=== PATIENT | male | born 1980 | race African-American/Black ===

== ENCOUNTER 2019-05-24 13:08 | Inpatient (IN) | payer OTHER ==
--- NOTE | 2019-05-24 14:33 | BHS.RME ---
Substance Use & Tx History - Substance Use History Alcohol Substance amount: 5 pints daily Frequency of use: Daily Substance route: Oral Date of Last Use: 05/23/19 Cocaine (Powder) Substance amount: 8 bags Frequency of use: Daily Substance route: Smoking Date of Last Use: 05/23/19 Nicotine Substance amount: 10 cigs Frequency of use: Daily Substance route: Smoking Date of Last Use: 05/24/19 Cannabis Substance amount: 1 blunt Frequency of use: Less than 3 times per week Substance route: Smoking Date of Last Use: 05/22/19 Physical/Psych/Mental Status - Behavior General Behavior: Increased activity (restlessness, agitation) Eye Contact: Normal - Cooperativeness Cooperativeness: Cooperative - Thinking Thought Processes: Loosened Thought content: Future oriented - Physical Health Problems Is patient presently having any pain?: Yes (diffuse) Does patient presently have any injuries (include location): No Does patient currently have a fever: No CIWA Nausea/Vomitin-No Nausea/No Vomiting Muscle Tremors: 3 Anxiety: 3 Agitation: 1-Slight > Activity Paroxysmal Sweats: 1-Minimal Palms Moist Orientation: 0-Oriented Tacttile Disturbances: 1-Very Mild Itch/Numbness Auditory Disturbances: 1-Very Mild Visual Disturbances: 2-Mild Sensitivity Headache: 4-Moderately Severe CIWA-Ar Total Score: 16
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
[2019-05-24] MEDS ORDERED: hydrOXYzine PAMOATE 25 MG CAPSULE (FP) PO PRN (15:57)
[2019-05-24] MEDS ORDERED: MAGNESIUM CITRATE 300 ML BOTTLE PO PRN (15:57)
[2019-05-24] MEDS ORDERED: METHOCARBAMOL 500 MG TABLET PO PRN (15:57)
[2019-05-24] MEDS ORDERED: ACETAMINOPHEN 325 MG TABLET (FP) PO PRN ×2 (15:57)
[2019-05-24] MEDS ORDERED: chlordiazePOXIDE HCL 25 MG CAPSULE PO PRN (15:57)
[2019-05-24] MEDS ORDERED: MENTHOL/PHENOL 1 EACH UD MM PRN (15:57)
[2019-05-24] MEDS ORDERED: BISMUTH SUBSALICYLATE 524 MG/30 ML UD PO PRN (15:57)
[2019-05-24] MEDS ORDERED: MAGNESIUM HYDROX 2400MG/30ML ORAL SUSPENSION 30 ML CUP PO PRN (15:57)
[2019-05-24 16:18] VITALS: BMI 35.4
[2019-05-24] MEDS: chlordiazePOXIDE HCL 25 MG CAPSULE PO SCH ×2 (17:14→22:22)
[2019-05-24] MEDS: IBUPROFEN 400 MG TABLET (FP) PO PRN (17:17)
[2019-05-24] MEDS: NICOTINE 14 MG/24 HOURS TOPICAL PATCH TD SCH (17:21)
[2019-05-24] MEDS: THIAMINE HCL 100 MG TABLET (FP) PO SCH (22:22)
[2019-05-24] MEDS: MELATONIN 5 MG TABLETS PO PRN (22:23)
[2019-05-25] MEDS: chlordiazePOXIDE HCL 25 MG CAPSULE PO SCH ×4 (05:23→22:03)
[2019-05-25] MEDS: PRENATAL VITAMINS W/ FOLIC ACID TABLET (FP) PO SCH (10:30)
[2019-05-25] MEDS: NICOTINE 14 MG/24 HOURS TOPICAL PATCH TD SCH (10:32)
--- NOTE | 2019-05-25 10:43 | PN ---
[facility] CIWA - CIWA Score Nausea/Vomitin-No Nausea/No Vomiting Muscle Tremors: 3 Anxiety: 3 Agitation: 5 Paroxysmal Sweats: 2 Orientation: 0-Oriented Tacttile Disturbances: 0-None Auditory Disturbances: 0-None Visual Disturbances: 0-None Headache: 0-None Present CIWA-Ar Total Score: 13 S Progress Note (SOAP) Subjective: 38 years old male admitted on 05/24/19 for alcohol withdrawal sx management treating with librium detox regiment reports taking aspirin anticholesterol and antihypertensive medication patient has bp elevation with anger outburst deescalated successfully resume all home medications Objective: 05/25/19 15:31 Vital Signs Temperature 98.3 F 05/25/19 12:42 Pulse Rate 83 05/25/19 12:42 Respiratory Rate 17 05/25/19 12:42 Blood Pressure 147/79 05/25/19 12:42 O2 Sat by Pulse Oximetry (%) Laboratory Last Values WBC 6.0 K/mm3 (4.0-10.0) 05/25/19 08:00 RBC 5.23 M/mm3 (4.00-5.60) 05/25/19 08:00 Hgb 12.9 GM/dL (11.7-16.9) 05/25/19 08:00 Hct 40.7 % (35.4-49) 05/25/19 08:00 MCV 77.8 fl (80-96) L 05/25/19 08:00 MCH 24.7 pg (25.7-33.7) L 05/25/19 08:00 MCHC 31.8 g/dl (32.0-35.9) L 05/25/19 08:00 RDW 16.0 % (11.9-15.9) H 05/25/19 08:00 Plt Count 188 K/MM3 (134-434) 05/25/19 08:00 MPV 9.2 fl (7.5-11.1) 05/25/19 08:00 Sodium 139 mmol/L (136-145) 05/25/19 08:00 Potassium 4.1 mmol/L (3.5-5.1) 05/25/19 08:00 Chloride 108 mmol/L (98-107) H 05/25/19 08:00 Carbon Dioxide 26 mmol/L (21-32) 05/25/19 08:00 Anion Gap 4 MMOL/L (8-16) L 05/25/19 08:00 BUN 13.8 mg/dL (7-18) 05/25/19 08:00 Creatinine 0.9 mg/dL (0.55-1.3) 05/25/19 08:00 Est GFR (CKD-EPI)AfAm 125.13 05/25/19 08:00 Est GFR (CKD-EPI)NonAf 107.97 05/25/19 08:00 Random Glucose 81 mg/dL (74-106) 05/25/19 08:00 Calcium 8.2 mg/dL (8.5-10.1) L 05/25/19 08:00 Total Bilirubin 0.8 mg/dL (0.2-1) 05/25/19 08:00 AST 18 U/L (15-37) 05/25/19 08:00 ALT 42 U/L (13-61) 05/25/19 08:00 Alkaline Phosphatase 62 U/L (45-117) 05/25/19 08:00 Total Protein 6.2 g/dl (6.4-8.2) L 05/25/19 08:00 Albumin 3.4 g/dl (3.4-5.0) 05/25/19 08:00 RPR Titer Nonreactive (NONREACTIVE) 05/25/19 08:00 lab noted Assessment: 05/25/19 15:31 alcohol withdrawal Plan: librium detox regiment
[2019-05-25 10:53] LABS: HEMATOCRIT 40.7 % (35.4-49); HEMOGLOBIN 12.9 GM/dL (11.7-16.9); MCH 24.7 pg (25.7-33.7); MCHC 31.8 g/dl (32.0-35.9); MEAN CELL VOLUME 77.8 fl (80-96); MEAN PLT VOLUME 9.2 fl (7.5-11.1); PLATELET COUNT 188 K/MM3 (134-434); RBC 5.23 M/mm3 (4.00-5.60)
[2019-05-25] MEDS: LISINOPRIL 10 MG TABLET (FP) PO SCH (11:01)
[2019-05-25] MEDS: ASPIRIN 81 MG CHEWABLE TABLETS PO SCH (11:01)
[2019-05-25 11:08] LABS: ALBUMIN 3.4 g/dl (3.4-5.0); BILIRUBIN,TOTAL 0.8 mg/dL (0.2-1); BLOOD UREA NITROGEN 13.8 mg/dL (7-18); CALCIUM 8.2 mg/dL (8.5-10.1); CREATININE 0.9 mg/dL (0.55-1.3); POTASSIUM 4.1 mmol/L (3.5-5.1); TOT PROT 6.2 g/dl (6.4-8.2)
[2019-05-25] MEDS: IBUPROFEN 400 MG TABLET (FP) PO PRN ×2 (12:46→22:07)
--- NOTE | 2019-05-25 16:50 | EKG ---
Test Reason : Blood Pressure : / mmHG Vent. Rate : 070 BPM Atrial Rate : 070 BPM P-R Int : 178 ms QRS Dur : 090 ms QT Int : 374 ms P-R-T Axes : 048 025 -03 degrees QTc Int : 403 ms NORMAL SINUS RHYTHM MINIMAL VOLTAGE CRITERIA FOR LVH, MAY BE NORMAL VARIANT NONSPECIFIC T WAVE ABNORMALITY ABNORMAL ECG Confirmed by MD SHELBIE, MAXX ([id number]) on 05/25/2019 4:50:03 PM Referred By: TRI Confirmed By:MAXX MORFIN MD
[2019-05-25] MEDS: MAG HYDROX/AL HYDROX/SIMETH 30 ML UNIT-DOSE CUP PO PRN (17:55)
[2019-05-25] MEDS: MELATONIN 5 MG TABLETS PO PRN (22:04)
[2019-05-25] MEDS: ATORVASTATIN CA 40 MG TABLET (FP) PO SCH (22:04)
[2019-05-25] MEDS: THIAMINE HCL 100 MG TABLET (FP) PO SCH (22:04)
[2019-05-26] MEDS: chlordiazePOXIDE HCL 25 MG CAPSULE PO SCH ×4 (05:37→22:01)
[2019-05-26] MEDS: LISINOPRIL 10 MG TABLET (FP) PO SCH (10:04)
[2019-05-26] MEDS: PRENATAL VITAMINS W/ FOLIC ACID TABLET (FP) PO SCH (10:04)
[2019-05-26] MEDS: NICOTINE 14 MG/24 HOURS TOPICAL PATCH TD SCH (10:04)
[2019-05-26] MEDS: ASPIRIN 81 MG CHEWABLE TABLETS PO SCH (10:04)
--- NOTE | 2019-05-26 14:49 | PN ---
S CIWA - CIWA Score Nausea/Vomitin-No Nausea/No Vomiting Muscle Tremors: 1-None Visible, but [place] Anxiety: 1-Mildly Anxious Agitation: 5 Paroxysmal Sweats: 1-Minimal Palms Moist Orientation: 0-Oriented Tacttile Disturbances: 0-None Auditory Disturbances: 0-None Visual Disturbances: 1-Very Mild Sensitivity Headache: 1-Very Mild CIWA-Ar Total Score: 10 BHS Progress Note (SOAP) Subjective: 38 years old male admitted on 05/24/19 for alcohol withdrawal sx management treating with librium detox regiment Mr Potter is irritable and agitative today prefers to be left along Objective: 05/26/19 14:50 Vital Signs Temperature 97.7 F 05/26/19 12:36 Pulse Rate 75 05/26/19 12:36 Respiratory Rate 18 05/26/19 12:36 Blood Pressure 137/85 05/26/19 12:36 O2 Sat by Pulse Oximetry (%) Laboratory Last Values WBC 6.0 K/mm3 (4.0-10.0) 05/25/19 08:00 RBC 5.23 M/mm3 (4.00-5.60) 05/25/19 08:00 Hgb 12.9 GM/dL (11.7-16.9) 05/25/19 08:00 Hct 40.7 % (35.4-49) 05/25/19 08:00 MCV 77.8 fl (80-96) L 05/25/19 08:00 MCH 24.7 pg (25.7-33.7) L 05/25/19 08:00 MCHC 31.8 g/dl (32.0-35.9) L 05/25/19 08:00 RDW 16.0 % (11.9-15.9) H 05/25/19 08:00 Plt Count 188 K/MM3 (134-434) 05/25/19 08:00 MPV 9.2 fl (7.5-11.1) 05/25/19 08:00 Sodium 139 mmol/L (136-145) 05/25/19 08:00 Potassium 4.1 mmol/L (3.5-5.1) 05/25/19 08:00 Chloride 108 mmol/L (98-107) H 05/25/19 08:00 Carbon Dioxide 26 mmol/L (21-32) 05/25/19 08:00 Anion Gap 4 MMOL/L (8-16) L 05/25/19 08:00 BUN 13.8 mg/dL (7-18) 05/25/19 08:00 Creatinine 0.9 mg/dL (0.55-1.3) 05/25/19 08:00 Est GFR (CKD-EPI)AfAm 125.13 05/25/19 08:00 Est GFR (CKD-EPI)NonAf 107.97 05/25/19 08:00 Random Glucose 81 mg/dL (74-106) 05/25/19 08:00 Calcium 8.2 mg/dL (8.5-10.1) L 05/25/19 08:00 Total Bilirubin 0.8 mg/dL (0.2-1) 05/25/19 08:00 AST 18 U/L (15-37) 05/25/19 08:00 ALT 42 U/L (13-61) 05/25/19 08:00 Alkaline Phosphatase 62 U/L (45-117) 05/25/19 08:00 Total Protein 6.2 g/dl (6.4-8.2) L 05/25/19 08:00 Albumin 3.4 g/dl (3.4-5.0) 05/25/19 08:00 RPR Titer Nonreactive (NONREACTIVE) 05/25/19 08:00 lab noted Assessment: 05/26/19 14:50 alcohol withdrawal Plan: librium regiment
[2019-05-26] MEDS: THIAMINE HCL 100 MG TABLET (FP) PO SCH (22:01)
[2019-05-26] MEDS: MELATONIN 5 MG TABLETS PO PRN (22:01)
[2019-05-26] MEDS: ATORVASTATIN CA 40 MG TABLET (FP) PO SCH (22:01)
[2019-05-26] MEDS: MAG HYDROX/AL HYDROX/SIMETH 30 ML UNIT-DOSE CUP PO PRN (22:04)
[2019-05-27] MEDS ORDERED: chlordiazePOXIDE HCL 10 MG CAPSULE PO PRN
[2019-05-27] MEDS: chlordiazePOXIDE HCL 10 MG CAPSULE PO SCH ×2 (05:30→10:04)
--- NOTE | 2019-05-27 09:25 | PN ---
[facility] CIWA - CIWA Score Nausea/Vomitin-No Nausea/No Vomiting Muscle Tremors: None Anxiety: 2 Agitation: 1-Slight > Activity Paroxysmal Sweats: 2 Orientation: 2-Disoriented Date<2 days Tacttile Disturbances: 0-None Auditory Disturbances: 0-None Visual Disturbances: 0-None Headache: 0-None Present CIWA-Ar Total Score: 7 BHS Progress Note (SOAP) Subjective: Pt complains of anxiety, took Vistaril yesterday without benefit Objective: 05/27/19 09:21 Laboratory Tests 05/25/19 05/25/19 05/25/19 08:00 08:00 08:00 WBC 6.0 RBC 5.23 Hgb 12.9 Hct 40.7 MCV 77.8 L MCH 24.7 L MCHC 31.8 L RDW 16.0 H Plt Count 188 MPV 9.2 Sodium 139 Potassium 4.1 Chloride 108 H Carbon Dioxide 26 Anion Gap 4 L BUN 13.8 Creatinine 0.9 Est GFR (CKD-EPI)AfAm 125.13 Est GFR (CKD-EPI)NonAf 107.97 Random Glucose 81 Calcium 8.2 L Total Bilirubin 0.8 AST 18 ALT 42 Alkaline Phosphatase 62 Total Protein 6.2 L Albumin 3.4 RPR Titer Nonreactive Vital Signs - 24 hr 05/26/19 05/26/19 05/26/19 12:36 17:11 20:12 Temperature 97.7 F 98.8 F 97.7 F Pulse Rate 75 81 72 Respiratory 18 18 16 Rate Blood Pressure 137/85 145/88 140/88 05/27/19 05/27/19 05/27/19 00:25 03:30 06:07 Temperature 96.7 F L Pulse Rate 50 L Respiratory 18 18 18 Rate Blood Pressure 131/92 PE Gnl: WDWN, in mild distress/anxious Mental status: awake, alert, nl language Motor: moves all limbs well Coord: nl Gait: nl Assessment: 05/27/19 09:24 1. Alcohol use disorder 2. anxious Plan: 1. continue alcohol withdrawal protocol 2. advised pt to take Vistaril and/or Librium 10 mg prn for sx of anxiety
[2019-05-27 09:31] VITALS: BP 125/77; PULSE 81; TEMP 97.6
[2019-05-27] MEDS: NICOTINE 14 MG/24 HOURS TOPICAL PATCH TD SCH (10:04)
[2019-05-27] MEDS: PRENATAL VITAMINS W/ FOLIC ACID TABLET (FP) PO SCH (10:04)
[2019-05-27] MEDS: ASPIRIN 81 MG CHEWABLE TABLETS PO SCH (10:04)
[2019-05-27] MEDS: LISINOPRIL 10 MG TABLET (FP) PO SCH (10:04)
--- NOTE | 2019-05-27 10:56 | DS ---
[facility] Detox Discharge Summary Admission Date: 05/24/19 Discharge Date: 05/27/19 - History Present History: Alcohol Dependence - Physical Exam Results Vital Signs: Vital Signs Temperature 97.6 F 05/27/19 08:37 Pulse Rate 81 05/27/19 08:37 Respiratory Rate 18 05/27/19 08:37 Blood Pressure 125/77 05/27/19 08:37 O2 Sat by Pulse Oximetry (%) Pertinent Admission Physical Exam Findings: PE Gnl: WDWN, anxious Motor: moves all limbs Coord: nl - Treatment Hospital Course: Detox Protocol Followed, Detoxed Safely, Responded well, Discharged Condition Good - Medication Discharge Medications: Ambulatory Orders Aspirin [ASA -] 81 mg PO DAILY 05/24/19 Atorvastatin Ca [Lipitor] 40 mg PO HS 05/24/19 Lisinopril [Prinivil] 10 mg PO DAILY 05/24/19 - Diagnosis (1) Alcohol abuse with intoxication, uncomplicated Current Visit: Yes Status: Acute (2) Cocaine abuse Current Visit: Yes Status: Acute (3) Nicotine dependence Current Visit: Yes Status: Acute (4) Cannabis abuse Current Visit: Yes Status: Chronic (5) HTN (hypertension) Current Visit: Yes Status: Acute (6) Myocardial infarct, old Current Visit: Yes Status: Chronic - AMA Did Patient Leave Against Medical Advice: No
[2019-05-28] MEDS ORDERED: chlordiazePOXIDE HCL 10 MG CAPSULE PO SCH (05:00)
[2019-05-29] MEDS ORDERED: chlordiazePOXIDE HCL 10 MG CAPSULE PO ONE (05:00)
== END 2019-05-27 11:08 | disposition home or self-care (01) | DRG 774 ==
LOC: YASAS 13:08 → Y3N 16:47
PROVIDERS: ADMIT Allergy & Immunology; ATTEND Allergy & Immunology
PROC: HZ2ZZZZ Detoxification Services for Substance Abuse Treatment (ICD-10-PCS; principal; 2019-05-24)
DX: F10.230 Alcohol dependence with withdrawal, uncomplicated (principal); F14.20 Cocaine dependence, uncomplicated; F12.10 Cannabis abuse, uncomplicated; F17.210 Nicotine dependence, cigarettes, uncomplicated; I25.10 Atherosclerotic heart disease of native coronary artery without angina pectoris; I10 Essential (primary) hypertension; I25.2 Old myocardial infarction; E78.00 Pure hypercholesterolemia, unspecified; Z79.82 Long term (current) use of aspirin; Z88.0 Allergy status to penicillin; Z91.013 Allergy to seafood
CPT/HCPCS: 36415; 80053; 85027; 86593; 93005; 93010

== ENCOUNTER 2021-03-22 11:12 | Inpatient (IN) | payer OTHER ==
[2021-03-22 12:02] VITALS: BMI 32.8
[2021-03-22] MEDS ORDERED: MAGNESIUM HYDROX 2400MG/30ML ORAL SUSPENSION 30 ML CUP PO PRN (12:49)
[2021-03-22] MEDS ORDERED: NICOTINE 10 MG CARTRIDGE (INHALER) IH PRN (12:49)
[2021-03-22] MEDS ORDERED: ACETAMINOPHEN 325 MG TABLET (FP) PO PRN (12:49)
[2021-03-22] MEDS ORDERED: MAG HYDROX/AL HYDROX/SIMETH 30 ML UNIT-DOSE CUP PO PRN (12:49)
[2021-03-22] MEDS ORDERED: ONDANSETRON *ODT* 4 MG TABLET SL PRN (12:49)
[2021-03-22] MEDS ORDERED: chlordiazePOXIDE HCL 25 MG CAPSULE PO PRN (12:49)
[2021-03-22] MEDS ORDERED: MAGNESIUM CITRATE 300 ML BOTTLE PO PRN (12:49)
[2021-03-22] MEDS: hydrOXYzine PAMOATE 25 MG CAPSULE (FP) PO SCH ×3 (18:02→22:19)
[2021-03-22] MEDS: chlordiazePOXIDE HCL 25 MG CAPSULE PO SCH ×2 (18:02→22:20)
[2021-03-22] MEDS: IBUPROFEN 400 MG TABLET (FP) PO PRN (18:03)
[2021-03-22] MEDS: PRENATAL VITAMINS W/ FOLIC ACID TABLET (FP) PO SCH (18:25)
[2021-03-22] MEDS: THIAMINE HCL 100 MG TABLET (FP) PO SCH (22:19)
[2021-03-22] MEDS: MELATONIN 5 MG TABLETS PO SCH (22:19)
[2021-03-22] MEDS: METHOCARBAMOL 500 MG TABLET PO PRN (22:21)
[2021-03-22] MEDS: ACETAMINOPHEN 325 MG TABLET (FP) PO PRN (22:21)
[2021-03-23] MEDS: hydrOXYzine PAMOATE 25 MG CAPSULE (FP) PO SCH ×5 (05:35→22:00)
[2021-03-23] MEDS: chlordiazePOXIDE HCL 25 MG CAPSULE PO SCH ×4 (05:36→22:00)
[2021-03-23] MEDS: METHOCARBAMOL 500 MG TABLET PO PRN ×2 (05:36→22:01)
[2021-03-23] MEDS: PRENATAL VITAMINS W/ FOLIC ACID TABLET (FP) PO SCH (10:17)
[2021-03-23 10:37] LABS: HEMATOCRIT 39.5 % (35.4-49); HEMOGLOBIN 12.5 GM/dL (11.7-16.9); MCH 24.5 pg (25.7-33.7); MCHC 31.8 g/dl (32.0-35.9); MEAN PLT VOLUME 9.2 fl (7.5-11.1); PLATELET COUNT 179 10^3/uL (134-434); RBC 5.12 M/mm3 (4.00-5.60); RDW 15.3 % (11.9-15.9)
[2021-03-23 10:45] LABS: CALCIUM 8.3 mg/dL (8.5-10.1)
[2021-03-23 10:46] LABS: BLOOD UREA NITROGEN 10.4 mg/dL (7-18)
[2021-03-23 10:48] LABS: CREATININE 0.9 mg/dL (0.55-1.3)
[2021-03-23 10:49] LABS: BILIRUBIN,TOTAL 0.2 mg/dL (0.2-1)
[2021-03-23 10:50] LABS: TOT PROT 6.1 g/dl (6.4-8.2)
[2021-03-23] MEDS: MENTHOL/PHENOL 1 EACH UD MM PRN ×2 (16:37→20:30)
[2021-03-23] MEDS: MELATONIN 5 MG TABLETS PO SCH (22:00)
[2021-03-23] MEDS: THIAMINE HCL 100 MG TABLET (FP) PO SCH (22:00)
[2021-03-24] MEDS: hydrOXYzine PAMOATE 25 MG CAPSULE (FP) PO SCH ×5 (05:17→22:20)
[2021-03-24] MEDS: chlordiazePOXIDE HCL 25 MG CAPSULE PO SCH ×4 (05:17→22:20)
[2021-03-24] MEDS: METHOCARBAMOL 500 MG TABLET PO PRN ×2 (05:18→18:17)
[2021-03-24] MEDS: PRENATAL VITAMINS W/ FOLIC ACID TABLET (FP) PO SCH (10:55)
[2021-03-24] MEDS: MENTHOL/PHENOL 1 EACH UD MM PRN (18:18)
[2021-03-24] MEDS: THIAMINE HCL 100 MG TABLET (FP) PO SCH (22:19)
[2021-03-24] MEDS: MELATONIN 5 MG TABLETS PO SCH (22:20)
[2021-03-24] MEDS: IBUPROFEN 400 MG TABLET (FP) PO PRN (22:21)
[2021-03-25] MEDS ORDERED: chlordiazePOXIDE HCL 10 MG CAPSULE PO PRN
[2021-03-25] MEDS: chlordiazePOXIDE HCL 10 MG CAPSULE PO SCH ×4 (05:24→22:37)
[2021-03-25] MEDS: hydrOXYzine PAMOATE 25 MG CAPSULE (FP) PO SCH ×5 (05:25→22:38)
[2021-03-25] MEDS: MENTHOL/PHENOL 1 EACH UD MM PRN ×2 (05:25→18:35)
[2021-03-25] MEDS: PRENATAL VITAMINS W/ FOLIC ACID TABLET (FP) PO SCH (10:06)
[2021-03-25] MEDS: IBUPROFEN 400 MG TABLET (FP) PO PRN ×2 (10:07→18:29)
[2021-03-25] MEDS: BISMUTH SUBSALICYLATE 262 MG/15 ML BTL PO PRN (18:34)
[2021-03-25] MEDS: MELATONIN 5 MG TABLETS PO SCH (22:38)
[2021-03-25] MEDS: THIAMINE HCL 100 MG TABLET (FP) PO SCH (22:38)
[2021-03-25] MEDS: METHOCARBAMOL 500 MG TABLET PO PRN (22:39)
[2021-03-26] MEDS: IBUPROFEN 400 MG TABLET (FP) PO PRN (03:28)
[2021-03-26] MEDS: chlordiazePOXIDE HCL 10 MG CAPSULE PO SCH ×2 (04:09→17:11)
[2021-03-26] MEDS: METHOCARBAMOL 500 MG TABLET PO PRN ×2 (04:44→17:01)
[2021-03-26] MEDS: hydrOXYzine PAMOATE 25 MG CAPSULE (FP) PO SCH ×5 (07:09→22:41)
[2021-03-26] MEDS: ACETAMINOPHEN 325 MG TABLET (FP) PO PRN (09:01)
[2021-03-26] MEDS: PRENATAL VITAMINS W/ FOLIC ACID TABLET (FP) PO SCH (10:20)
[2021-03-26] MEDS: ASPIRIN 81 MG CHEWABLE TABLETS PO SCH (12:44)
[2021-03-26] MEDS ORDERED: cloNIDine HCL 0.1 MG TABLET PO ONE (16:45)
[2021-03-26] MEDS: MELATONIN 5 MG TABLETS PO SCH (22:41)
[2021-03-26] MEDS: ATORVASTATIN CA 40 MG TABLET (FP) PO SCH (22:41)
[2021-03-26] MEDS: THIAMINE HCL 100 MG TABLET (FP) PO SCH (22:41)
[2021-03-27] MEDS ORDERED: chlordiazePOXIDE HCL 10 MG CAPSULE PO ONE (05:00)
[2021-03-27] MEDS: hydrOXYzine PAMOATE 25 MG CAPSULE (FP) PO SCH ×5 (06:55→21:09)
[2021-03-27] MEDS: ACETAMINOPHEN 325 MG TABLET (FP) PO PRN (06:59)
[2021-03-27] MEDS: METHOCARBAMOL 500 MG TABLET PO PRN ×2 (06:59→21:08)
[2021-03-27] MEDS: BISMUTH SUBSALICYLATE 262 MG/15 ML BTL PO PRN (07:01)
[2021-03-27] MEDS: PRENATAL VITAMINS W/ FOLIC ACID TABLET (FP) PO SCH (09:59)
[2021-03-27] MEDS: ASPIRIN 81 MG CHEWABLE TABLETS PO SCH (09:59)
[2021-03-27] MEDS: guaiFENesin 200 MG/10 ML 10 ML UNIT-DOSE CUPS PO PRN (19:14)
[2021-03-27] MEDS: THIAMINE HCL 100 MG TABLET (FP) PO SCH (21:02)
[2021-03-27] MEDS: MELATONIN 5 MG TABLETS PO SCH (21:02)
[2021-03-27] MEDS: ATORVASTATIN CA 40 MG TABLET (FP) PO SCH (21:02)
[2021-03-27] MEDS: IBUPROFEN 400 MG TABLET (FP) PO PRN (23:19)
[2021-03-28] MEDS ORDERED: ACETAMINOPHEN 325 MG TABLET (FP) PO ONE (01:18)
[2021-03-28] MEDS: hydrOXYzine PAMOATE 25 MG CAPSULE (FP) PO SCH ×2 (05:46→12:09)
[2021-03-28] MEDS: PRENATAL VITAMINS W/ FOLIC ACID TABLET (FP) PO SCH (10:45)
[2021-03-28] MEDS: ASPIRIN 81 MG CHEWABLE TABLETS PO SCH (10:45)
[2021-03-28] MEDS: ACETAMINOPHEN 325 MG TABLET (FP) PO PRN (13:43)
[2021-03-28] MEDS: IBUPROFEN 400 MG TABLET (FP) PO PRN ×2 (17:06→23:18)
[2021-03-28] MEDS: THIAMINE HCL 100 MG TABLET (FP) PO SCH (22:19)
[2021-03-28] MEDS: ATORVASTATIN CA 40 MG TABLET (FP) PO SCH (22:19)
[2021-03-28] MEDS: MELATONIN 5 MG TABLETS PO SCH (22:19)
[2021-03-29] MEDS: IBUPROFEN 400 MG TABLET (FP) PO PRN ×2 (05:27→17:06)
[2021-03-29] MEDS: ASPIRIN 81 MG CHEWABLE TABLETS PO SCH (11:04)
[2021-03-29] MEDS: PRENATAL VITAMINS W/ FOLIC ACID TABLET (FP) PO SCH (11:04)
[2021-03-29] MEDS: guaiFENesin 200 MG/10 ML 10 ML UNIT-DOSE CUPS PO PRN ×2 (11:05→19:31)
[2021-03-29] MEDS: ACETAMINOPHEN 325 MG TABLET (FP) PO PRN ×2 (13:30→21:41)
[2021-03-29] MEDS: MELATONIN 5 MG TABLETS PO SCH (21:41)
[2021-03-29] MEDS: ATORVASTATIN CA 40 MG TABLET (FP) PO SCH (21:41)
[2021-03-29] MEDS: THIAMINE HCL 100 MG TABLET (FP) PO SCH (21:41)
[2021-03-30] MEDS ORDERED: ALBUTEROL SO4 HFA INHALER IH PRN (05:30)
[2021-03-30] MEDS: guaiFENesin 200 MG/10 ML 10 ML UNIT-DOSE CUPS PO PRN (06:29)
[2021-03-30 06:31] VITALS: BP 104/82; PULSE 86; TEMP 97.7
[2021-03-30] MEDS: PRENATAL VITAMINS W/ FOLIC ACID TABLET (FP) PO SCH (10:46)
[2021-03-30] MEDS: ASPIRIN 81 MG CHEWABLE TABLETS PO SCH (10:46)
[2021-03-30] MEDS ORDERED: BENZOCAINE/MENTHOL 1 EACH LOZENGE MM PRN (20:38)
[2021-03-30] MEDS ORDERED: ACETAMINOPHEN 1000 MG/100 ML BAG IVPB PRN (20:39)
[2021-03-30] MEDS ORDERED: ALBUTEROL SO4 HFA INHALER IH SCH (20:45)
[2021-03-30] MEDS ORDERED: BUDESONIDE/FORMETEROL FUMARATE 80/4.5 mcg INHALER IH SCH (22:00)
== END 2021-03-30 23:55 | disposition short-term general hospital (02) | DRG 773 ==
LOC: YASAS 11:12 → Y3N 14:45
PROVIDERS: ADMIT Allergy & Immunology; ATTEND Allergy & Immunology
PROC: HZ2ZZZZ Detoxification Services for Substance Abuse Treatment (ICD-10-PCS; principal; 2021-03-22)
DX: F10.20 Alcohol dependence, uncomplicated (principal); F11.20 Opioid dependence, uncomplicated; F14.20 Cocaine dependence, uncomplicated; F12.20 Cannabis dependence, uncomplicated; F17.210 Nicotine dependence, cigarettes, uncomplicated; F32.A Depression, unspecified; U07.1 COVID-19; I10 Essential (primary) hypertension; I25.2 Old myocardial infarction; R05.9 Cough, unspecified; R06.02 Shortness of breath; R88.0 Cloudy (hemodialysis) (peritoneal) dialysis effluent; Z91.013 Allergy to seafood
CPT/HCPCS: 36415; 80053; 85027; 86780; C9803; J0735; U0003; U0005

== ENCOUNTER 2021-03-30 10:39 | Inpatient (IN) | payer OTHER ==
[2021-03-30 12:07] VITALS: BMI 29.1
[2021-03-30] MEDS ORDERED: DEXAMETHASONE SOD PHOSPHATE 10 MG/1 ML VIAL IVPUSH ONE (14:07)
[2021-03-30] MEDS ORDERED: DEXAMETHASONE SOD PHOSPHATE 10 MG/1 ML VIAL ONE (14:18)
[2021-03-30] MEDS ORDERED: ACETAMINOPHEN 1000 MG/100 ML BAG IVPB ONE (14:46)
[2021-03-30] MEDS ORDERED: METOCLOPRAMIDE HCL INJECTION 10 MG/2 ML VIAL IVPUSH ONE (14:46)
[2021-03-30] MEDS ORDERED: ACETAMINOPHEN INJECTION 100 ML IVPB ONE (14:51)
[2021-03-30] MEDS ORDERED: METOCLOPRAMIDE HCL INJECTION 10 MG/2 ML VIAL ONE (14:51)
[2021-03-30 14:57] LABS: BASO % 0.3 % (0-2.0); HEMOGLOBIN 13.5 GM/dL (11.7-16.9); LYMPH % 24.1 % (8-40); MCH 23.5 pg (25.7-33.7); MCHC 31.3 g/dl (32.0-35.9); MEAN PLT VOLUME 8.6 fl (7.5-11.1); MONO % 7.4 % (3.8-10.2); NEUT % 68.2 % (42.8-82.8); PLATELET COUNT 199 10^3/uL (134-434); RBC 5.72 M/mm3 (4.00-5.60); RDW 15.1 % (11.9-15.9); WHITE BLOOD COUNT 5.4 K/mm3 (4.0-10.0)
[2021-03-30 15:17] LABS: CHLORIDE 103 mmol/L (98-107); SODIUM 135 mmol/L (136-145)
[2021-03-30 15:21] LABS: ALBUMIN 3.6 g/dl (3.4-5.0); ANION GAP 7 MMOL/L (8-16); CALCIUM 8.4 mg/dL (8.5-10.1); CO2 25 mmol/L (21-32); GLUCOSE,RANDOM 93 mg/dL (74-106)
[2021-03-30 15:24] LABS: CREATININE 0.9 mg/dL (0.55-1.3); SGPT/ALT 56 U/L (13-61)
[2021-03-30 15:25] LABS: SGOT/AST 35 U/L (15-37)
[2021-03-30 15:26] LABS: BILIRUBIN,TOTAL 0.3 mg/dL (0.2-1); TOT PROT 7.2 g/dl (6.4-8.2)
[2021-03-30 15:28] LABS: ALK PHOS 62 U/L (45-117)
[2021-03-30 15:33] LABS: ERYTHROCYTE SEDIMENTATION RATE 14 mm/hr (0-10)
[2021-03-30] MEDS ORDERED: FAMOTIDINE 20 MG/50 ML IVPB 20 MG/50 ML MG IVPB ONE ×2 (20:20→20:38)
[2021-03-30] MEDS ORDERED: ATORVASTATIN CA 40 MG TABLET (FP) ONE (20:38)
[2021-03-30] MEDS ORDERED: guaiFENesin 200 MG/10 ML 10 ML UNIT-DOSE CUPS PO PRN (20:40)
[2021-03-30] MEDS ORDERED: BENZOCAINE/MENTH/CETYLPYRD CL 1 EACH LOZENGE MM PRN (20:40)
[2021-03-30] MEDS ORDERED: ACETAMINOPHEN 1000 MG/100 ML BAG IVPB PRN (20:41)
[2021-03-30] MEDS: ATORVASTATIN CA 40 MG TABLET (FP) PO SCH (22:14)
[2021-03-31 08:54] LABS: BASO % 0.3 % (0-2.0); EOS % 0.1 % (0-4.5); HEMATOCRIT 42.2 % (35.4-49); HEMOGLOBIN 13.4 GM/dL (11.7-16.9); LYMPH % 21.8 % (8-40); MCH 23.6 pg (25.7-33.7); MCHC 31.7 g/dl (32.0-35.9); MEAN CELL VOLUME 74.4 fl (80-96); MEAN PLT VOLUME 8.3 fl (7.5-11.1); MONO % 7.4 % (3.8-10.2); NEUT % 70.4 % (42.8-82.8); PLATELET COUNT 217 10^3/uL (134-434); RBC 5.67 M/mm3 (4.00-5.60); WHITE BLOOD COUNT 6.3 K/mm3 (4.0-10.0)
[2021-03-31 09:06] LABS: BLOOD UREA NITROGEN 11.2 mg/dL (7-18); CALCIUM 8.4 mg/dL (8.5-10.1)
[2021-03-31 09:07] LABS: ALBUMIN 3.2 g/dl (3.4-5.0); MAGNESIUM 2.4 mg/dL (1.8-2.4)
[2021-03-31 09:09] LABS: PHOSPHOROUS 2.8 mg/dL (2.5-4.9)
[2021-03-31 09:10] LABS: CREATININE 0.9 mg/dL (0.55-1.3)
[2021-03-31 09:11] LABS: BILIRUBIN,TOTAL 0.3 mg/dL (0.2-1); TOT PROT 7.1 g/dl (6.4-8.2)
[2021-03-31] MEDS ORDERED: ASPIRIN 81 MG CHEWABLE TABLETS ONE (09:58)
[2021-03-31] MEDS ORDERED: DEXAMETHASONE SOD PHOSPHATE 4 MG/1 ML VIAL ONE (09:59)
[2021-03-31] MEDS ORDERED: CHOLECALCIFEROL (VIT D3) 1,000 UNIT (25 MCG) TABLET ONE (09:59)
[2021-03-31] MEDS ORDERED: ZINC SULFATE 220 MG CAPSULE (FP) ONE (09:59)
[2021-03-31] MEDS ORDERED: ENOXAPARIN NA (PORCINE) 40 MG/0.4 ML DISP.SYRIN SQ ONE (09:59)
[2021-03-31] MEDS: ASPIRIN 81 MG CHEWABLE TABLETS PO SCH (10:06)
[2021-03-31] MEDS: CHOLECALCIFEROL (VIT D3) 1,000 UNIT (25 MCG) TABLET PO SCH (10:07)
[2021-03-31] MEDS: ASCORBIC ACID 250 MG TABLET (FP) PO SCH (10:07)
[2021-03-31] MEDS: ENOXAPARIN NA (PORCINE) 40 MG/0.4 ML DISP.SYRIN SQ SCH (10:07)
[2021-03-31] MEDS: DEXAMETHASONE SOD PHOSPHATE 4 MG/1 ML VIAL IVPUSH SCH (10:07)
[2021-03-31] MEDS: ZINC SULFATE 220 MG CAPSULE (FP) PO SCH (10:07)
[2021-03-31 10:08] LABS: ERYTHROCYTE SEDIMENTATION RATE 23 mm/hr (0-10)
[2021-03-31] MEDS ORDERED: LORATADINE 10 MG TABLET PO ONE (12:00)
[2021-03-31] MEDS ORDERED: REMDESIVIR 200 MG in SODIUM CHLORIDE 250 ML IVPB ONE (12:00)
[2021-03-31] MEDS ORDERED: LORATADINE 10 MG TABLET ONE (12:31)
[2021-03-31] MEDS ORDERED: ATORVASTATIN CA 40 MG TABLET (FP) ONE (23:59)
[2021-04-01] MEDS: ATORVASTATIN CA 40 MG TABLET (FP) PO SCH ×2 (00:02→21:59)
[2021-04-01 09:26] LABS: BASO % 0.3 % (0-2.0); HEMATOCRIT 39.2 % (35.4-49); HEMOGLOBIN 12.6 GM/dL (11.7-16.9); MCH 23.9 pg (25.7-33.7); MCHC 32.2 g/dl (32.0-35.9); MEAN PLT VOLUME 8.3 fl (7.5-11.1); MONO % 8.8 % (3.8-10.2); NEUT % 61.9 % (42.8-82.8); PLATELET COUNT 270 10^3/uL (134-434); RBC 5.29 M/mm3 (4.00-5.60); RDW 14.3 % (11.9-15.9); WHITE BLOOD COUNT 6.2 K/mm3 (4.0-10.0)
[2021-04-01 09:48] LABS: CALCIUM 8.3 mg/dL (8.5-10.1)
[2021-04-01 09:50] LABS: BLOOD UREA NITROGEN 13.9 mg/dL (7-18)
[2021-04-01 09:51] LABS: ALBUMIN 3.1 g/dl (3.4-5.0)
[2021-04-01 09:53] LABS: PHOSPHOROUS 2.9 mg/dL (2.5-4.9)
[2021-04-01 09:54] LABS: BILIRUBIN,TOTAL 1.1 mg/dL (0.2-1); TOT PROT 6.9 g/dl (6.4-8.2)
[2021-04-01] MEDS: DEXAMETHASONE SOD PHOSPHATE 4 MG/1 ML VIAL IVPUSH SCH (11:00)
[2021-04-01] MEDS: ASPIRIN 81 MG CHEWABLE TABLETS PO SCH (11:00)
[2021-04-01] MEDS: ASCORBIC ACID 250 MG TABLET (FP) PO SCH (11:00)
[2021-04-01] MEDS: LORATADINE 10 MG TABLET PO SCH (11:00)
[2021-04-01] MEDS: ZINC SULFATE 220 MG CAPSULE (FP) PO SCH (11:00)
[2021-04-01] MEDS: CHOLECALCIFEROL (VIT D3) 1,000 UNIT (25 MCG) TABLET PO SCH (11:00)
[2021-04-01] MEDS ORDERED: ENOXAPARIN NA (PORCINE) 40 MG/0.4 ML DISP.SYRIN SQ ONE (11:44)
[2021-04-01] MEDS ORDERED: ASPIRIN 81 MG CHEWABLE TABLETS ONE (11:44)
[2021-04-01] MEDS ORDERED: LORATADINE 10 MG TABLET ONE (11:44)
[2021-04-01] MEDS ORDERED: ASCORBIC ACID 500 MG TABLET (FP) ONE (11:44)
[2021-04-01] MEDS ORDERED: DEXAMETHASONE SOD PHOSPHATE 10 MG/1 ML VIAL ONE (11:44)
[2021-04-01] MEDS ORDERED: ZINC SULFATE 220 MG CAPSULE (FP) ONE (11:44)
[2021-04-01] MEDS ORDERED: CHOLECALCIFEROL (VIT D3) 1,000 UNIT (25 MCG) TABLET ONE (11:44)
[2021-04-01] MEDS: ENOXAPARIN NA (PORCINE) 40 MG/0.4 ML DISP.SYRIN SQ SCH (11:55)
[2021-04-01] MEDS: REMDESIVIR 100 MG in SODIUM CHLORIDE 250 ML IVPB SCH (11:57)
[2021-04-01] MEDS ORDERED: SODIUM CHLORIDE NASAL SPRAY 44 ML BOTTLE NS PRN (15:05)
[2021-04-01] MEDS: ACETAMINOPHEN 325 MG TABLET (FP) PO PRN (22:36)
[2021-04-02 09:34] LABS: BASO % 0.4 % (0-2.0); EOS % 0.4 % (0-4.5); HEMATOCRIT 42.2 % (35.4-49); HEMOGLOBIN 13.4 GM/dL (11.7-16.9); LYMPH % 30.6 % (8-40); MCH 23.9 pg (25.7-33.7); MCHC 31.8 g/dl (32.0-35.9); MEAN CELL VOLUME 75.2 fl (80-96); MEAN PLT VOLUME 8.6 fl (7.5-11.1); MONO % 10.2 % (3.8-10.2); NEUT % 58.4 % (42.8-82.8); PLATELET COUNT 303 10^3/uL (134-434); RDW 14.9 % (11.9-15.9); WHITE BLOOD COUNT 5.5 K/mm3 (4.0-10.0)
[2021-04-02] MEDS ORDERED: PT OWN MED DRAWER 7, Y5N ONE (09:53)
[2021-04-02] MEDS: ASPIRIN 81 MG CHEWABLE TABLETS PO SCH (09:56)
[2021-04-02] MEDS: FOLIC ACID 1 MG TABLET (FP) PO SCH (09:56)
[2021-04-02] MEDS: LORATADINE 10 MG TABLET PO SCH (09:56)
[2021-04-02] MEDS: LISINOPRIL 10 MG TABLET PO SCH (09:57)
[2021-04-02] MEDS: ZINC SULFATE 220 MG CAPSULE (FP) PO SCH (09:57)
[2021-04-02] MEDS: DEXAMETHASONE SOD PHOSPHATE 4 MG/1 ML VIAL IVPUSH SCH (09:58)
[2021-04-02] MEDS: ASCORBIC ACID 250 MG TABLET (FP) PO SCH (09:58)
[2021-04-02] MEDS: CHOLECALCIFEROL (VIT D3) 1,000 UNIT (25 MCG) TABLET PO SCH (09:58)
[2021-04-02] MEDS: ENOXAPARIN NA (PORCINE) 40 MG/0.4 ML DISP.SYRIN SQ SCH ×2 (09:59→10:07)
[2021-04-02] MEDS: THIAMINE HCL 100 MG TABLET (FP) PO SCH (10:00)
[2021-04-02 10:06] LABS: CHLORIDE 105 mmol/L (98-107); SODIUM 137 mmol/L (136-145)
[2021-04-02 10:25] LABS: ALBUMIN 3.2 g/dl (3.4-5.0); ALK PHOS 56 U/L (45-117); ANION GAP 9 MMOL/L (8-16); BILIRUBIN,TOTAL 0.5 mg/dL (0.2-1); BLOOD UREA NITROGEN 12.9 mg/dL (7-18); CO2 22 mmol/L (21-32); CREATININE 0.9 mg/dL (0.55-1.3); GLUCOSE,RANDOM 84 mg/dL (74-106); MAGNESIUM 2.5 mg/dL (1.8-2.4); PHOSPHOROUS 3.4 mg/dL (2.5-4.9); SGOT/AST 48 U/L (15-37); SGPT/ALT 59 U/L (13-61); TOT PROT 6.9 g/dl (6.4-8.2)
[2021-04-02 10:27] LABS: LDH QNS U/L (87-246)
[2021-04-02] MEDS: REMDESIVIR 100 MG in SODIUM CHLORIDE 250 ML IVPB SCH (12:00)
[2021-04-02] MEDS: ATORVASTATIN CA 40 MG TABLET (FP) PO SCH (21:06)
[2021-04-03 10:00] LABS: BASO % 0.3 % (0-2.0); EOS % 0.3 % (0-4.5); HEMATOCRIT 41.9 % (35.4-49); HEMOGLOBIN 13.6 GM/dL (11.7-16.9); LYMPH % 28.3 % (8-40); MCH 24.1 pg (25.7-33.7); MCHC 32.4 g/dl (32.0-35.9); MEAN CELL VOLUME 74.3 fl (80-96); MEAN PLT VOLUME 7.9 fl (7.5-11.1); MONO % 10.8 % (3.8-10.2); NEUT % 60.3 % (42.8-82.8); PLATELET COUNT 328 10^3/uL (134-434); RBC 5.64 M/mm3 (4.00-5.60); RDW 14.9 % (11.9-15.9); WHITE BLOOD COUNT 6.1 K/mm3 (4.0-10.0)
[2021-04-03 10:44] LABS: CALCIUM 8.8 mg/dL (8.5-10.1)
[2021-04-03 10:45] LABS: ALBUMIN 3.3 g/dl (3.4-5.0); BLOOD UREA NITROGEN 10.3 mg/dL (7-18); MAGNESIUM 2.4 mg/dL (1.8-2.4)
[2021-04-03 10:47] LABS: CREATININE 0.7 mg/dL (0.55-1.3)
[2021-04-03] MEDS: ENOXAPARIN NA (PORCINE) 40 MG/0.4 ML DISP.SYRIN SQ SCH (10:48)
[2021-04-03] MEDS: ASPIRIN 81 MG CHEWABLE TABLETS PO SCH (10:48)
[2021-04-03] MEDS: THIAMINE HCL 100 MG TABLET (FP) PO SCH (10:48)
[2021-04-03] MEDS: ASCORBIC ACID 250 MG TABLET (FP) PO SCH (10:48)
[2021-04-03 10:49] LABS: BILIRUBIN,TOTAL 0.5 mg/dL (0.2-1); TOT PROT 7.1 g/dl (6.4-8.2)
[2021-04-03] MEDS: DEXAMETHASONE SOD PHOSPHATE 4 MG/1 ML VIAL IVPUSH SCH (10:51)
[2021-04-03] MEDS: LISINOPRIL 10 MG TABLET PO SCH (10:51)
[2021-04-03] MEDS: CHOLECALCIFEROL (VIT D3) 1,000 UNIT (25 MCG) TABLET PO SCH (10:51)
[2021-04-03] MEDS: ZINC SULFATE 220 MG CAPSULE (FP) PO SCH (10:51)
[2021-04-03] MEDS: LORATADINE 10 MG TABLET PO SCH (10:51)
[2021-04-03] MEDS: FOLIC ACID 1 MG TABLET (FP) PO SCH (10:51)
[2021-04-03] MEDS: REMDESIVIR 100 MG in SODIUM CHLORIDE 250 ML IVPB SCH (12:12)
[2021-04-03] MEDS: ATORVASTATIN CA 40 MG TABLET (FP) PO SCH (21:04)
[2021-04-03] MEDS ORDERED: MELATONIN 5 MG TABLETS PO ONE (21:54)
[2021-04-03] MEDS: ACETAMINOPHEN 325 MG TABLET (FP) PO PRN (22:26)
[2021-04-04 10:04] LABS: BASO % 0.4 % (0-2.0); EOS % 0.6 % (0-4.5); HEMATOCRIT 42.3 % (35.4-49); HEMOGLOBIN 13.3 GM/dL (11.7-16.9); LYMPH % 28.7 % (8-40); MCH 23.8 pg (25.7-33.7); MCHC 31.5 g/dl (32.0-35.9); MEAN CELL VOLUME 75.4 fl (80-96); MEAN PLT VOLUME 8.4 fl (7.5-11.1); MONO % 5.8 % (3.8-10.2); NEUT % 64.5 % (42.8-82.8); PLATELET COUNT 380 10^3/uL (134-434); RBC 5.61 M/mm3 (4.00-5.60); RDW 15.2 % (11.9-15.9); WHITE BLOOD COUNT 7.2 K/mm3 (4.0-10.0)
[2021-04-04 10:25] LABS: CALCIUM 8.7 mg/dL (8.5-10.1)
[2021-04-04 10:26] LABS: ALBUMIN 3.4 g/dl (3.4-5.0); BLOOD UREA NITROGEN 10.1 mg/dL (7-18); MAGNESIUM 2.2 mg/dL (1.8-2.4)
[2021-04-04 10:29] LABS: CREATININE 0.8 mg/dL (0.55-1.3); PHOSPHOROUS 3.6 mg/dL (2.5-4.9)
[2021-04-04 10:30] LABS: BILIRUBIN,TOTAL 0.6 mg/dL (0.2-1); TOT PROT 6.9 g/dl (6.4-8.2)
[2021-04-04 10:48] VITALS: BP 123/68; PULSE 71; TEMP 97.8
[2021-04-04] MEDS: ZINC SULFATE 220 MG CAPSULE (FP) PO SCH (10:49)
[2021-04-04] MEDS: THIAMINE HCL 100 MG TABLET (FP) PO SCH (10:49)
[2021-04-04] MEDS: ASPIRIN 81 MG CHEWABLE TABLETS PO SCH (10:49)
[2021-04-04] MEDS: LISINOPRIL 10 MG TABLET PO SCH (10:49)
[2021-04-04] MEDS: ASCORBIC ACID 250 MG TABLET (FP) PO SCH (10:50)
[2021-04-04] MEDS: DEXAMETHASONE SOD PHOSPHATE 4 MG/1 ML VIAL IVPUSH SCH (10:50)
[2021-04-04] MEDS: CHOLECALCIFEROL (VIT D3) 1,000 UNIT (25 MCG) TABLET PO SCH (10:50)
[2021-04-04] MEDS: LORATADINE 10 MG TABLET PO SCH (10:50)
[2021-04-04] MEDS: FOLIC ACID 1 MG TABLET (FP) PO SCH (10:50)
[2021-04-04] MEDS: ENOXAPARIN NA (PORCINE) 40 MG/0.4 ML DISP.SYRIN SQ SCH (10:51)
[2021-04-04] MEDS: REMDESIVIR 100 MG in SODIUM CHLORIDE 250 ML IVPB SCH (12:16)
== END 2021-04-04 16:14 | disposition home or self-care (01) | DRG 137 ==
LOC: JER 10:39 → JERBED 18:13 → J8W 04-01 12:21
PROVIDERS: ADMIT Internal Medicine; ATTEND Internal Medicine
PROC: XW033E5 Introduction of Remdesivir Anti-infective into Peripheral Vein, Percutaneous Approach, New Technology Group 5 (ICD-10-PCS; principal; 2021-03-31)
DX: U07.1 COVID-19 (principal); J96.01 Acute respiratory failure with hypoxia; J12.82 Pneumonia due to coronavirus disease 2019; I25.2 Old myocardial infarction; E78.5 Hyperlipidemia, unspecified; F11.10 Opioid abuse, uncomplicated; F10.10 Alcohol abuse, uncomplicated; F14.10 Cocaine abuse, uncomplicated; Z86.74 Personal history of sudden cardiac arrest
CPT/HCPCS: 36415; 71046-TC-FY; 80053; 82550; 82728; 83615; 83735; 84100; 84484; 85025; 85379; 85651; 86140; 87804; 87899; 93005; 93010; 94761; 97116-GP; 97161-GP; 99285-25; C9399; C9803-CS; J1100; U0003; U0005

== ENCOUNTER 2021-04-25 18:28 | Inpatient (IN) | payer OTHER ==
[2021-04-25 20:09] VITALS: BMI 29.2
[2021-04-25] MEDS ORDERED: MAGNESIUM CITRATE 300 ML BOTTLE PO PRN (20:51)
[2021-04-25] MEDS ORDERED: DICYCLOMINE HCL 10 MG CAPSULE PO PRN (20:51)
[2021-04-25] MEDS ORDERED: MAG HYDROX/AL HYDROX/SIMETH 30 ML UNIT-DOSE CUP PO PRN (20:51)
[2021-04-25] MEDS ORDERED: guaiFENesin 200 MG/10 ML 10 ML UNIT-DOSE CUPS PO PRN (20:51)
[2021-04-25] MEDS ORDERED: ACETAMINOPHEN 325 MG TABLET (FP) PO PRN ×2 (20:51)
[2021-04-25] MEDS ORDERED: ONDANSETRON *ODT* 4 MG TABLET SL PRN (20:51)
[2021-04-25] MEDS ORDERED: BISMUTH SUBSALICYLATE 524 MG/30 ML PO PRN (20:51)
[2021-04-25] MEDS ORDERED: MENTHOL/PHENOL 1 EACH UD MM PRN (20:51)
[2021-04-25] MEDS ORDERED: MAGNESIUM HYDROX 2400MG/30ML ORAL SUSPENSION 30 ML CUP PO PRN (20:51)
[2021-04-25] MEDS ORDERED: chlordiazePOXIDE HCL 25 MG CAPSULE PO PRN (20:51)
[2021-04-25] MEDS ORDERED: P-EPHED 60MG/TRIPROLIDI 2.5MG TABLET PO PRN (20:51)
[2021-04-25] MEDS: THIAMINE HCL 100 MG TABLET (FP) PO SCH (22:52)
[2021-04-25] MEDS: METHOCARBAMOL 500 MG TABLET PO PRN (22:52)
[2021-04-25] MEDS: MELATONIN 5 MG TABLETS PO SCH (22:52)
[2021-04-25] MEDS: IBUPROFEN 400 MG TABLET (FP) PO PRN (22:52)
[2021-04-25] MEDS: chlordiazePOXIDE HCL 25 MG CAPSULE PO SCH (22:57)
[2021-04-26] MEDS: chlordiazePOXIDE HCL 25 MG CAPSULE PO SCH ×4 (06:22→22:00)
[2021-04-26] MEDS: METHOCARBAMOL 500 MG TABLET PO PRN ×2 (06:25→16:42)
[2021-04-26 10:28] LABS: HEMATOCRIT 40.3 % (35.4-49); HEMOGLOBIN 12.2 GM/dL (11.7-16.9); MCH 23.9 pg (25.7-33.7); MCHC 30.3 g/dl (32.0-35.9); MEAN CELL VOLUME 78.9 fl (80-96); MEAN PLT VOLUME 8.6 fl (7.5-11.1); PLATELET COUNT 239 10^3/uL (134-434); RBC 5.11 M/mm3 (4.00-5.60); RDW 17.5 % (11.9-15.9); WHITE BLOOD COUNT 5.8 K/mm3 (4.0-10.0)
[2021-04-26 10:40] LABS: ALBUMIN 3.3 g/dl (3.4-5.0); CALCIUM 8.4 mg/dL (8.5-10.1)
[2021-04-26 10:41] LABS: BLOOD UREA NITROGEN 7.4 mg/dL (7-18)
[2021-04-26] MEDS: PRENATAL VITAMINS W/ FOLIC ACID TABLET (FP) PO SCH (10:43)
[2021-04-26 10:44] LABS: CREATININE 0.9 mg/dL (0.55-1.3)
[2021-04-26] MEDS: NICOTINE 14 MG/24 HOURS TOPICAL PATCH TD SCH (10:44)
[2021-04-26 10:45] LABS: BILIRUBIN,TOTAL 0.5 mg/dL (0.2-1); TOT PROT 6.1 g/dl (6.4-8.2)
[2021-04-26] MEDS: NICOTINE 10 MG CARTRIDGE (INHALER) IH PRN ×2 (17:24→22:23)
[2021-04-26] MEDS: THIAMINE HCL 100 MG TABLET (FP) PO SCH (21:59)
[2021-04-26] MEDS: GABAPENTIN 300 MG CAPSULE PO SCH (21:59)
[2021-04-26] MEDS: QUEtiapine FUMARATE 50 MG TABLET PO SCH (21:59)
[2021-04-26] MEDS: ATORVASTATIN CA 40 MG TABLET (FP) PO SCH (21:59)
[2021-04-26] MEDS: MELATONIN 5 MG TABLETS PO SCH (21:59)
[2021-04-26] MEDS ORDERED: GABAPENTIN 300 MG CAPSULE PO SCH (22:00)
[2021-04-27] MEDS: GABAPENTIN 300 MG CAPSULE PO SCH ×3 (06:28→22:05)
[2021-04-27] MEDS: chlordiazePOXIDE HCL 25 MG CAPSULE PO SCH ×4 (06:28→22:06)
[2021-04-27] MEDS: METHOCARBAMOL 500 MG TABLET PO PRN ×3 (06:29→17:45)
[2021-04-27] MEDS: NICOTINE 14 MG/24 HOURS TOPICAL PATCH TD SCH (12:39)
[2021-04-27] MEDS: PRENATAL VITAMINS W/ FOLIC ACID TABLET (FP) PO SCH (12:40)
[2021-04-27] MEDS: LISINOPRIL 10 MG TABLET PO SCH (12:41)
[2021-04-27] MEDS: NICOTINE 10 MG CARTRIDGE (INHALER) IH PRN ×3 (12:43→22:05)
[2021-04-27] MEDS: IBUPROFEN 400 MG TABLET (FP) PO PRN (17:31)
[2021-04-27] MEDS: QUEtiapine FUMARATE 50 MG TABLET PO SCH (22:05)
[2021-04-27] MEDS: ATORVASTATIN CA 40 MG TABLET (FP) PO SCH (22:05)
[2021-04-27] MEDS: MELATONIN 5 MG TABLETS PO SCH (22:05)
[2021-04-27] MEDS: THIAMINE HCL 100 MG TABLET (FP) PO SCH (22:05)
[2021-04-28] MEDS ORDERED: chlordiazePOXIDE HCL 10 MG CAPSULE PO PRN
[2021-04-28] MEDS: GABAPENTIN 300 MG CAPSULE PO SCH ×3 (06:33→22:04)
[2021-04-28] MEDS: METHOCARBAMOL 500 MG TABLET PO PRN ×2 (06:33→13:35)
[2021-04-28] MEDS: chlordiazePOXIDE HCL 10 MG CAPSULE PO SCH ×4 (06:41→22:04)
[2021-04-28] MEDS: NICOTINE 10 MG CARTRIDGE (INHALER) IH PRN ×2 (07:01→17:12)
[2021-04-28] MEDS: LISINOPRIL 10 MG TABLET PO SCH (10:43)
[2021-04-28] MEDS: PRENATAL VITAMINS W/ FOLIC ACID TABLET (FP) PO SCH (10:43)
[2021-04-28] MEDS: IBUPROFEN 400 MG TABLET (FP) PO PRN (10:45)
[2021-04-28] MEDS: NICOTINE 14 MG/24 HOURS TOPICAL PATCH TD SCH (10:53)
[2021-04-28] MEDS ORDERED: cloNIDine HCL 0.1 MG TABLET PO PRN (17:53)
[2021-04-28] MEDS: MELATONIN 5 MG TABLETS PO SCH (22:04)
[2021-04-28] MEDS: QUEtiapine FUMARATE 50 MG TABLET PO SCH (22:04)
[2021-04-28] MEDS: THIAMINE HCL 100 MG TABLET (FP) PO SCH (22:04)
[2021-04-28] MEDS: ATORVASTATIN CA 40 MG TABLET (FP) PO SCH (22:04)
[2021-04-28] MEDS: NICOTINE POLACRILEX 2 MG GUM BUC PRN (22:05)
[2021-04-29] MEDS: chlordiazePOXIDE HCL 10 MG CAPSULE PO SCH ×2 (06:13→17:01)
[2021-04-29] MEDS: GABAPENTIN 300 MG CAPSULE PO SCH ×3 (06:14→22:00)
[2021-04-29] MEDS: METHOCARBAMOL 500 MG TABLET PO PRN (06:14)
[2021-04-29] MEDS: PRENATAL VITAMINS W/ FOLIC ACID TABLET (FP) PO SCH (10:25)
[2021-04-29] MEDS: NICOTINE 14 MG/24 HOURS TOPICAL PATCH TD SCH (10:25)
[2021-04-29] MEDS: LISINOPRIL 10 MG TABLET PO SCH (10:25)
[2021-04-29] MEDS: METHOCARBAMOL 500 MG TABLET PO SCH ×2 (10:47→22:00)
[2021-04-29] MEDS: NICOTINE POLACRILEX 2 MG GUM BUC PRN (17:55)
[2021-04-29] MEDS: THIAMINE HCL 100 MG TABLET (FP) PO SCH (21:59)
[2021-04-29] MEDS: MELATONIN 5 MG TABLETS PO SCH (22:00)
[2021-04-29] MEDS: QUEtiapine FUMARATE 50 MG TABLET PO SCH (22:00)
[2021-04-29] MEDS: ATORVASTATIN CA 40 MG TABLET (FP) PO SCH (22:00)
[2021-04-30] MEDS ORDERED: chlordiazePOXIDE HCL 10 MG CAPSULE PO ONE (05:00)
[2021-04-30] MEDS: GABAPENTIN 300 MG CAPSULE PO SCH (05:27)
[2021-04-30 08:53] VITALS: BP 127/87; PULSE 80; TEMP 97.3
[2021-04-30] MEDS: METHOCARBAMOL 500 MG TABLET PO SCH (09:39)
[2021-04-30] MEDS: PRENATAL VITAMINS W/ FOLIC ACID TABLET (FP) PO SCH (09:40)
[2021-04-30] MEDS: LISINOPRIL 10 MG TABLET PO SCH (09:40)
[2021-04-30] MEDS: NICOTINE 14 MG/24 HOURS TOPICAL PATCH TD SCH (09:59)
== END 2021-04-30 11:50 | disposition other institution (70) | DRG 774 ==
LOC: YASAS 18:28 → Y3N 21:35
PROVIDERS: ADMIT Allergy & Immunology; ATTEND Allergy & Immunology
PROC: HZ2ZZZZ Detoxification Services for Substance Abuse Treatment (ICD-10-PCS; principal; 2021-04-25)
DX: F10.230 Alcohol dependence with withdrawal, uncomplicated (principal); F14.20 Cocaine dependence, uncomplicated; F13.20 Sedative, hypnotic or anxiolytic dependence, uncomplicated; F12.20 Cannabis dependence, uncomplicated; F17.210 Nicotine dependence, cigarettes, uncomplicated; F19.282 Other psychoactive substance dependence with psychoactive substance-induced sleep disorder; F19.24 Other psychoactive substance dependence with psychoactive substance-induced mood disorder; F39 Unspecified mood [affective] disorder; E46 Unspecified protein-calorie malnutrition; Z68.29 Body mass index [BMI] 29.0-29.9, adult; G62.9 Polyneuropathy, unspecified; I25.10 Atherosclerotic heart disease of native coronary artery without angina pectoris; I10 Essential (primary) hypertension; I25.2 Old myocardial infarction
CPT/HCPCS: 36415; 80053; 85027; 86780; C9803; J0735; U0003; U0005